=== PATIENT | female | born 1990 | race American Indian/Alaskan Native ===

== ENCOUNTER 2019-03-15 00:25 | Emergency (ER) | payer BC ==
[2019-03-15 01:01] VITALS: BP 103/65
[2019-03-15 01:36] LABS: Bilirubin,Urine NEG (Negative); Blood,Urine LG (Negative); Color,Urine Yellow (Yellow); Mucus,Urine 1+ /HPF; Protein,Urine <15 mg/dL mg/dL (Negative)
[2019-03-15 01:39] LABS: RBC,Urine > 182.0 /HPF (0.0-6.0)
[2019-03-15 01:41] LABS: HCG Qualitative,Urine Negative (Negative)
[2019-03-15] MEDS ORDERED: LEVAQUIN PO STA (01:49)
--- NOTE | 2019-03-15 02:01 | Emergency Department Report ---
ED Back Pain/Injury HPI - General Chief Complaint: Back Pain/Injury Stated Complaint: BACK PAIN Time Seen by Provider: 03/15/19 01:48 Source: patient Limitations: Language Barrier - History of Present Illness MD Complaint: back pain -: Gradual, Sudden, days(s) (1) Similar Symptoms Previously: No Place: work Radiation: flank Severity: moderate Consistency: intermittent (comes in waves and causes a spastic flank pain one present. Most the spasm resolves the pain subsides) Worsens With: none, movement (certain positions) Associated Symptoms: denies: confusion, weakness, chest pain, difficulty walking, cough, incontinence, constipation, headaches, nausea/vomiting, rash, shortness of breath - Related Data Previous Rx's Medication Instructions Recorded Last Taken Type Ciprofloxacin HCl [Ciprofloxacin 500 mg PO Q12HR #28 tab 03/15/19 Unknown Rx TAB] methOCARBAMOL [Robaxin] 750 mg PO Q8H PRN #21 tablet 03/15/19 Unknown Rx traMADol [Ultram] 50 mg PO Q6HR PRN #20 tablet 03/15/19 Unknown Rx Allergies Allergy/AdvReac Type Severity Reaction Status Date / Time No Known Allergies Allergy Unverified 03/15/19 01:01 ED Review of Systems ROS: Stated complaint: BACK PAIN Other details as noted in HPI Comment: All other systems reviewed and negative ED Past Medical Hx - Past Medical History Previous Medical History?: No - Surgical History Past Surgical History?: No - Social History Smoking Status: Current Every Day Smoker Substance Use Type: Marijuana - Medications Home Medications: Home Medications Medication Instructions Recorded Confirmed Last Taken Type Ciprofloxacin HCl [Ciprofloxacin 500 mg PO Q12HR #28 tab 03/15/19 Unknown Rx TAB] methOCARBAMOL [Robaxin] 750 mg PO Q8H PRN #21 tablet 03/15/19 Unknown Rx traMADol [Ultram] 50 mg PO Q6HR PRN #20 tablet 03/15/19 Unknown Rx ED Physical Exam - General Limitations: Language Barrier General appearance: alert, in no apparent distress - Head Head exam: Present: atraumatic, normocephalic, normal inspection - Eye Eye exam: Present: normal appearance, EOMI. Absent: conjunctival injection, periorbital swelling Pupils: Present: normal accommodation - ENT ENT exam: Present: normal exam, normal orophraynx, mucous membranes moist, TM's normal bilaterally - Neck Neck exam: Present: normal inspection, full ROM - Respiratory Respiratory exam: Present: normal lung sounds bilaterally. Absent: respiratory distress, wheezes, rhonchi, accessory muscle use, decreased breath sounds - Cardiovascular Cardiovascular Exam: Present: regular rate, normal rhythm. Absent: systolic murmur, diastolic murmur, rubs, gallop - GI/Abdominal GI/Abdominal exam: Present: soft, normal bowel sounds - Extremities Exam Extremities exam: Present: normal inspection - Back Exam Back exam: Present: normal inspection, CVA tenderness (R), paraspinal tenderness (to the right flank region) - Neurological Exam Neurological exam: Present: alert, oriented X3, CN II-XII intact, normal gait - Psychiatric Psychiatric exam: Present: normal affect, normal mood - Skin Skin exam: Present: warm, dry, intact, normal color. Absent: rash ED Course Vital Signs 03/15/19 00:48 Temperature 98.9 F Pulse Rate 93 H Respiratory 18 Rate Blood Pressure 103/65 O2 Sat by Pulse 100 Oximetry ED Medical Decision Making - Differential Diagnosis pyelonephritis, back strain, neuropathy, liver disease Critical care attestation.: If time is entered above; I have spent that time in minutes in the direct care of this critically ill patient, excluding procedure time. ED Disposition Clinical Impression: UTI (urinary tract infection), Back pain Disposition: - TO HOME OR SELFCARE Is pt being admited?: No Does the pt Need Aspirin: No Condition: Stable Instructions: Back Pain (ED), Flank Pain (ED), Urinary Tract Infection in Women (ED) Prescriptions: Ciprofloxacin HCl [Ciprofloxacin TAB] 500 mg PO Q12HR #28 tab methOCARBAMOL [Robaxin] 750 mg PO Q8H PRN #21 tablet PRN Reason: Spasms traMADol [Ultram] 50 mg PO Q6HR PRN #20 tablet PRN Reason: Pain Referrals: [facility] [Provider Group] - 3-5 Days
[2019-03-15] MEDS ORDERED: IBUPROFEN PO ONE (02:07)
== END 2019-03-15 02:28 | disposition home or self-care (01) ==
LOC: ED 00:25
DX: N39.0 Urinary tract infection, site not specified (principal); M54.9 Dorsalgia, unspecified; Z79.899 Other long term (current) drug therapy; F17.200 Nicotine dependence, unspecified, uncomplicated; F12.10 Cannabis abuse, uncomplicated
CPT/HCPCS: 81001; 81025; 87086; 99283